=== PATIENT | female | born 1980 | race Hispanic/Latino ===

== ENCOUNTER 2019-04-17 03:34 | Emergency (ER) | payer SELFPAY ==
--- OUTSIDE RECORDS SUMMARY | 2019-04-17 03:36 | XMS REPORT ---
:1980 [facility] Address [address] [place] [address] [address] [place] [address] Care Team Providers Name Role Phone Unavailable Unavailable Unavailable Problems This patient has no known problems. Allergies, Adverse Reactions, Alerts This patient has no known allergies or adverse reactions. Medications This patient has no known medications.
[2019-04-17] MEDS ORDERED: MAGNE/ALUM HYDROXD 30 ML UCUP ONE (04:12)
[2019-04-17] MEDS ORDERED: LIDOCAINE VISCOUS 2% SOLN 15 ML UDC ONE (04:13)
[2019-04-17] MEDS ORDERED: ACETAMINOPHEN 325 MG TABLET ONE (04:13)
[2019-04-17 05:20] LABS: Absolute Lymphocytes (CBC) 1.6 K/uL (0.7-4.9); Basophils % 0.2 % (0-1.3); Hematocrit 39.1 % (36.0-45.0); Lymphocytes % 10.9 % (15.3-44.8); MPV 8.4 fL (7.6-11.3); RBC Red Blood Cell Count 4.47 M/uL (3.86-4.86)
[2019-04-17 05:31] LABS: Urine Blood NEGATIVE (NEG); Urine Glucose NEGATIVE (NEG); Urine Protein NEGATIVE (NEG); Urine pH 7.5 (5.0-7.0)
[2019-04-17 05:35] LABS: ALT/SGPT 27 U/L (12-78); AST/SGOT 14 U/L (15-37); Albumin 3.2 g/dL (3.4-5.0); Alkaline Phosphatase 98 U/L (45-117); BUN Blood Urea Nitrogen 3 mg/dL (7-18); Bicarbonate 23 mmol/L (21-32); Bilirubin Direct 0.1 mg/dL (0-0.2); Bilirubin Total 0.4 mg/dL (0.2-1.0); Glucose Level 99 mg/dL (74-106); Lipase 67 U/L (73-393); Potassium 3.5 mmol/L (3.5-5.1); Protein, Total 7.3 g/dL (6.4-8.2); Sodium Level 136 mmol/L (136-145)
[2019-04-17] MEDS ORDERED: MORPHINE 2 MG/ML SYR ONE (05:49)
[2019-04-17] MEDS ORDERED: ONDANSETRON 4 MG/2 ML VIAL ONE (05:50)
--- NOTE | 2019-04-17 06:48 | EDPHYS ---
Physician Documentation [facility] Name: Erin Carey Age: 38 yrs Sex: Female : 1980 Arrival Date: 04/17/2019 Time: 03:36 Bed 6 Private MD: ED Physician Jorge Lozano HPI: 04/17 04:09 This 38 yrs old Female presents to ER via Ambulatory with complaints of pkl Abdominal Pain. 05:09 The patient presents with abdominal pain in the epigastric area. Onset: The pkl symptoms/episode began/occurred yesterday. The symptoms do not radiate. Associated signs and symptoms: Pertinent positives: vomiting. Patient is 12 weeks . [employer]CISION [employer]SEM[employer]ER BENCH: 03:49 LMP 01/21/2019, Verified, EDC 10/28/2019, Gestational age from LMP: 12 weeks 2 vc days Historical: - Allergies: 03:52 No Known Allergies; vc - Home Meds: 03:52 Vitamin Oral tab once daily for [Active]; vc - Immunization history:: Adult Immunizations up to date. - Social history:: Smoking status: Patient/guardian denies using tobacco. - Ebola Screening: : No symptoms or risks identified at this time. ROS: 05:09 Eyes: Negative for injury, pain, redness, and discharge, ENT: Negative for injury, pkl pain, and discharge, Neck: Negative for injury, pain, and swelling, Cardiovascular: Negative for chest pain, palpitations, and edema, Respiratory: Negative for shortness of breath, cough, wheezing, and pleuritic chest pain. 05:09 Abdomen/GI: Positive for abdominal pain, vomiting, of the epigastric area. 05:09 Back: Negative for acute changes. 05:09 : Negative for urinary symptoms. 05:09 MS/extremity: Negative for acute changes. 05:09 Skin: Negative for rash. 05:09 Neuro: Negative for altered mental status. Exam: 05:09 Head/Face: Normocephalic, atraumatic. Eyes: Pupils equal round and reactive to light, pkl extra-ocular motions intact. Lids and lashes normal. Conjunctiva and sclera are non-icteric and not injected. Cornea within normal limits. Periorbital areas with no swelling, redness, or edema. ENT: Nares patent. No nasal discharge, no septal abnormalities noted. Tympanic membranes are normal and external auditory canals are clear. Oropharynx with no redness, swelling, or masses, exudates, or evidence of obstruction, uvula midline. Mucous membranes moist. Neck: Trachea midline, no thyromegaly or masses palpated, and no cervical lymphadenopathy. Supple, full range of motion without nuchal rigidity, or vertebral point tenderness. No Meningismus. Chest/axilla: Normal chest wall appearance and motion. Nontender with no deformity. No lesions are appreciated. Cardiovascular: Regular rate and rhythm with a normal S1 and S2. No gallops, murmurs, or rubs. Normal PMI, no JVD. No pulse deficits. Respiratory: Lungs have equal breath sounds bilaterally, clear to auscultation and percussion. No rales, rhonchi or wheezes noted. No increased work of breathing, no retractions or nasal flaring. 05:09 Abdomen/GI: Bowel sounds: normal, Palpation: soft, mild abdominal tenderness, in the epigastric area. 05:09 Back: Exam negative for acute changes. 05:09 : Exam negative for acute changes. 05:09 Musculoskeletal/extremity: Exam is negative for acute changes. 05:09 Skin: Exam negative for rash. 05:09 Neuro: Orientation: is normal, Mentation: is normal, Cranial nerves: grossly normal, Motor: is normal. Vital Signs: 03:53 BP 128 / 55; Pulse 100; Resp 18; Temp 98.8; Pulse Ox 99% on R/A; Weight 95.25 kg; vc Height 5 ft. 2 in. (157.48 cm); Pain 9/10; 05:02 BP 110 / 69; Pulse 89; Resp 16; Pulse Ox 98% on R/A; vc 05:56 BP 116 / 72; Pulse 91; Resp 16 S; Pulse Ox 98% on R/A; bb 06:53 BP 105 / 64; Pulse 88; Resp 16; Temp 98.2(O); Pulse Ox 98% on R/A; bb 03:53 Body Mass Index 38.41 (95.25 kg, 157.48 cm) vc MDM: 03:42 Patient medically screened. pkl 05:57 Data reviewed: vital signs, nurses notes, lab test result(s). pkl 04/17 03:58 Order name: Urine Dipstick--Ancillary (enter results); Complete Time: 05:34 ds4 04/17 03:58 Order name: Urine --Ancillary (enter results); Complete Time: 05:34 ds4 04/17 04:00 Order name: Basic Metabolic Panel; Complete Time: 05:42 pkl 04/17 04:00 Order name: CBC with Diff; Complete Time: 05:34 pkl 04/17 04:00 Order name: Creatinine for Radiology; Complete Time: 05:35 pkl 04/17 04:00 Order name: Hepatic Function; Complete Time: 05:42 pkl 04/17 04:00 Order name: Lipase; Complete Time: 05:42 pkl 04/17 04:00 Order name: IV Saline Lock; Complete Time: 04:15 pkl 04/17 06:51 Order name: US Abdomen Limited pkl 04/17 04:00 Order name: Labs collected and sent; Complete Time: 04:16 pkl Administered Medications: 04:16 Drug: GI Cocktail without - (Maalox Suspension 30 ml, Lidocaine Liquid 2 % 15 bb ml) Route: PO; 05:15 Follow up: Response: No adverse reaction bb 04:16 Drug: Tylenol 650 mg Route: PO; bb 05:16 Follow up: Response: No adverse reaction bb 05:53 Drug: Zofran 4 mg Route: IVP; Site: right antecubital; bb 06:54 Follow up: Response: No adverse reaction bb 05:55 Drug: morphine 2 mg {Note: RASS 0.} Route: IVP; Site: right antecubital; bb 06:54 Follow up: Response: Pain is decreased; RASS: Alert and Calm (0) bb Disposition: 04/17/19 06:45 Discharged to Home. Impression: Epigastric pain. 1 st trimester . - Condition is Stable. - Medication Reconciliation Form, Thank You Letter, Antibiotic Education, Prescription Opioid Use form. - Follow up: Private Physician; When: 2 - 3 days; Reason: Re-evaluation by your physician. - Problem is new. - Symptoms have improved. Signatures: Dispatcher [employer] EDMS Jorge Lozano MD MD pkl Ballard, Brenda, RN RN Claire Casas RN RN vc Corrections: (The following items were deleted from the chart) 07:04 06:45 04/17/2019 06:45 Discharged to Home. Impression: Epigastric pain. 1 st trimester bb . Condition is Stable. Forms are Medication Reconciliation Form, Thank You Letter, Antibiotic Education, Prescription Opioid Use. Follow up: Private Physician; When: 2 - 3 days; Reason: Re-evaluation by your physician. Problem is new. Symptoms have improved. pkl
--- NOTE | 2019-04-17 07:05 | ER ---
Nurse's Notes [facility] Name: Erin Carey Age: 38 yrs Sex: Female : 1980 Arrival Date: 04/17/2019 Time: 03:36 Bed 6 Private MD: Diagnosis: Epigastric pain. 1 st trimester Presentation: 04/17 03:48 Presenting complaint: Patient states: She started experiencing epigastric pain vc yesterday around 8pm, she vomited once. Transition of care: patient was not received from another setting of care. Onset of symptoms was April 16, 2000. Risk Assessment: Do you want to hurt yourself or someone else? Patient reports no desire to harm self or others. Initial Sepsis Screen: Does the patient meet any 2 criteria? No. Patient's initial sepsis screen is negative. Does the patient have a suspected source of infection? No. Patient's initial sepsis screen is negative. Care prior to arrival: None. 03:48 Method Of Arrival: Ambulatory vc 03:48 Acuity: ROMY 3 vc Triage Assessment: 03:50 General: Appears in no apparent distress. uncomfortable, Behavior is calm, cooperative. vc Pain: Complains of pain in abdomen Pain does not radiate. Pain at worst was 9 out of 10 on a pain scale. GI: Abdomen is flat, non-distended. FREIGHT CHECKER: 03:49 LMP 01/21/2019, Verified, EDC 10/28/2019, Gestational age from LMP: 12 weeks 2 vc days Historical: - Allergies: 03:52 No Known Allergies; vc - Home Meds: 03:52 Vitamin Oral tab once daily for [Active]; vc - Immunization history:: Adult Immunizations up to date. - Social history:: Smoking status: Patient/guardian denies using tobacco. - Ebola Screening: : No symptoms or risks identified at this time. Screenin:47 Abuse screen: Denies threats or abuse. Nutritional screening: No deficits noted. vc Tuberculosis screening: No symptoms or risk factors identified. Fall Risk None identified. Assessment: 04:00 General: Appears in no apparent distress. Behavior is calm, cooperative. Pain: lp1 Complains of pain in abdomen. Neuro: Level of Consciousness is awake, alert, obeys commands, Oriented to person, place, time, situation. Cardiovascular: Heart tones S1 S2 present Capillary refill < 3 seconds Patient's skin is warm and dry. Respiratory: Airway is patent Respiratory effort is even, unlabored, Respiratory pattern is regular. GI: Abdomen is non-distended, Bowel sounds hyperactive in right upper quadrant, left upper quadrant, right lower quadrant and left lower quadrant Abd is soft X 4 quads Abdomen is tender to palpation in epigastric area. Derm: Skin is pink, warm \T\ dry. Musculoskeletal: No deficits noted. Circulation, motion, and sensation intact. 05:19 Reassessment: Patient is alert, oriented x 3, equal unlabored respirations, skin bb warm/dry/pink. pt states the pain is the same Dr Lozano notified. 05:55 Reassessment: Patient is alert, oriented x 3, equal unlabored respirations, skin bb warm/dry/pink. Dr Lozano at bedside for discussion of findings and recommendations pt to have ultrasound this morning on their arrival pt and spouse verbalized understanding of and agree to plan of care. 06:53 Reassessment: Patient is alert, oriented x 3, equal unlabored respirations, skin bb warm/dry/pink. pt states pain is still 7/10 pt is awaiting US. 07:04 Reassessment: Patient is alert, oriented x 3, equal unlabored respirations, skin bb warm/dry/pink. pt verbalized understanding of and agrees to plan of care discharge instructions given pt ambulated with steady gait to exit accompanied by family. Vital Signs: 03:53 BP 128 / 55; Pulse 100; Resp 18; Temp 98.8; Pulse Ox 99% on R/A; Weight 95.25 kg; vc Height 5 ft. 2 in. (157.48 cm); Pain 9/10; 05:02 BP 110 / 69; Pulse 89; Resp 16; Pulse Ox 98% on R/A; vc 05:56 BP 116 / 72; Pulse 91; Resp 16 S; Pulse Ox 98% on R/A; bb 06:53 BP 105 / 64; Pulse 88; Resp 16; Temp 98.2(O); Pulse Ox 98% on R/A; bb 03:53 Body Mass Index 38.41 (95.25 kg, 157.48 cm) vc ED Course: 03:36 Patient arrived in ED. ds1 03:42 Jorge Lozano MD is Attending Physician. pkl 03:47 Claire Fuentes, RN is Primary Nurse. vc 03:49 Triage completed. vc 03:51 Arm band placed on. vc 03:53 Patient has correct armband on for positive identification. Placed in gown. Bed in low vc position. Call light in reach. Side rails up X 1. 04:02 Urine --Ancillary (enter results) Sent. ds4 04:02 Urine Dipstick--Ancillary (enter results) Sent. ds4 04:10 Inserted saline lock: 20 gauge in right forearm, using aseptic technique. Blood ds4 collected. 07:03 No provider procedures requiring assistance completed. IV discontinued, intact, bb bleeding controlled, No redness/swelling at site. Pressure dressing applied. 07:07 US Abdomen Limited In Process Unspecified. EDMS Administered Medications: 04:16 Drug: GI Cocktail without - (Maalox Suspension 30 ml, Lidocaine Liquid 2 % 15 bb ml) Route: PO; 05:15 Follow up: Response: No adverse reaction bb 04:16 Drug: Tylenol 650 mg Route: PO; bb 05:16 Follow up: Response: No adverse reaction bb 05:53 Drug: Zofran 4 mg Route: IVP; Site: right antecubital; bb 06:54 Follow up: Response: No adverse reaction bb 05:55 Drug: morphine 2 mg {Note: RASS 0.} Route: IVP; Site: right antecubital; bb 06:54 Follow up: Response: Pain is decreased; RASS: Alert and Calm (0) bb Outcome: 06:45 Discharge ordered by . tianna 07:03 Discharged to home ambulatory, with family. bb 07:03 Condition: stable 07:03 Discharge instructions given to patient, Instructed on discharge instructions, follow up and referral plans. Demonstrated understanding of instructions, follow-up care. 07:04 Patient left the ED. bb Signatures: Dispatcher [employer] EDMS Jorge Lozano MD MD pkl Sanford, Demi ds1 Corrine Grigsby RN RN bb Etta Bowens, FRANCOISE RN lp1 Tony Comer ds4 Claire Fuentes, FRANCOISE RN vc Corrections: (The following items were deleted from the chart) 05:19 03:48 Acuity: ROMY 4 vc vc 05:55 05:55 morphine 2 mg IVP in right antecubital bb bb
[2019-04-17 07:15] VITALS: O2SAT 98
[2019-04-17 07:19] VITALS: BP 105/64; TEMP 98.2
--- NOTE | 2019-04-17 08:14 | RAD REPORT ---
EXAM DESCRIPTION: US - Abdomen Exam Limited - 04/17/2019 7:04 am CLINICAL HISTORY: epigastric pain Preliminary findings provided at the time of the study. COMPARISON: No comparisons FINDINGS: No gallstones, sludge or other abnormalities within the gallbladder lumen. There is no wal l thickening or pericholecystic fluid. No common duct stone or biliary tree dilatation identified. IMPRESSION: Normal gallbladder and biliary tree ultrasound.
== END 2019-04-17 07:04 | disposition home or self-care (01) ==
LOC: ER 03:34
DX: O26.891 Other specified pregnancy related conditions, first trimester (principal); Z3A.12 12 weeks gestation of pregnancy
CPT/HCPCS: 36415; 76705; 80048; 80076; 81003; 81025; 83690; 85025; 96374; 96375; 99284; J2270; J2405